=== PATIENT | male | born 1975 | race Caucasian/White ===

== ENCOUNTER 2019-10-31 06:52 | Day surgery (SDC) | payer OTHER ==
[2019-10-28 09:33] LABS: BASOPHIL % 0.5 % (0-2); PLATELET COUNT 161 x10^3mcL (130-400); RED CELL DISTRIBUTION WIDTH 14.8 % (11.5-14.5)
[2019-10-28 09:36] LABS: CALCIUM 9.3 mg/dL (8.5-10.1); CARBON DIOXIDE 28.6 mmol/L (21-32); CHLORIDE SERUM 101 mmol/L (98-107); GFR1 > 60 mL/min; GLUCOSE SERUM 97 mg/dL (74-106); POTASSIUM SERUM 4.5 mmol/L (3.5-5.1); SODIUM SERUM 138 mmol/L (136-145)
[2019-10-28 09:41] LABS: ALBUMIN 4.5 g/dL (3.4-5.0); ALKALINE PHOSPHATASE 136 U/L (46-116); ALT/SGPT 39 U/L (16-63); AST/SGOT 17 U/L (15-37); BILIRUBIN TOTAL 0.3 mg/dL (0.20-1.00)
[2019-10-28 09:55] LABS: TOTAL PROTEIN, SERUM 8.4 g/dL (6.4-8.2)
[~2019-10-31] VITALS: Ht 182.9 cm; Wt 93.0 kg
[2019-10-31 07:11] VITALS: BP 136/77
[2019-10-31 09:39] VITALS: BP 106/67
== END 2019-10-31 09:25 | disposition home or self-care (01) ==
LOC: DS 06:52 → OR 09:00 → DS 09:00
PROVIDERS: Orthopaedic Surgery
DX: M25.662 Stiffness of left knee, not elsewhere classified (principal); F17.210 Nicotine dependence, cigarettes, uncomplicated; F12.90 Cannabis use, unspecified, uncomplicated; Z96.653 Presence of artificial knee joint, bilateral; Z79.899 Other long term (current) drug therapy; Z98.890 Other specified postprocedural states
CPT/HCPCS: J2175; J2250; J3010